=== PATIENT | female | born 1940 | race Caucasian/White ===

== ENCOUNTER 2024-04-10 12:07 | Emergency (ER) | payer OTHER, SELFPAY ==
[2024-04-10 12:16] VITALS: BP 131/86
[2024-04-10 12:47] VITALS: BMI 24.1
[2024-04-10] MEDS: CARDIZEM 10 MG IV (12:50)
[2024-04-10] MEDS: NSS 500 IV (12:52)
--- NOTE | 2024-04-10 12:54 | ED.GENMED ---
History of Present Illness
General
Chief Complaint: Heart Rate Problem
Source: patient and spouse
Exam Limitations: none
Time Seen by Provider: 04/10/24 12:41
Nursing documentation reviewed up to this point in time: agreed with
History of Present Illness
History of Present Illness:
84-year-old female with a past medical history of hypertension, hyperlipidemia who presents to the emergency room for evaluation of dizziness and tachycardia. Patient reports onset of symptoms yesterday morning while she was doing her usual yoga
class. She says that while she was finishing up she began to feel very dizzy and had to rest which is unusual for her. She says that she has had consistent feeling of dizziness since then, she says that she checked her heart rate and it was very
elevated. She says that she schedule an appointment to see her stroboscope operator (she has seen Dr. Greco to follow small pericardial effusion), in the office had an EKG that showed tachycardia and was sent to the ER for assessment. EKG here shows
atrial flutter; patient denies any known history of atrial fibrillation/flutter. Aside from dizziness patient reports mild shortness of breath. She says she has had intermittent symptoms for months but never quite this severe. She denies any
chest pain. She denies any other complaints. Her only medications are valsartan and amlodipine.
Review of Systems
Review of Systems
All Other Systems: ROS reviewed and negative except as documented in HPI and ROS
Constitutional: Reports fatigue; Denies fever or chills
Respiratory: Denies trouble breathing
Cardiac: Reports palpitations; Denies chest pain or diaphoresis
ABD/GI: Denies abdominal pain, nausea or vomiting
: Denies flank pain
Musculoskeletal: Denies edema, neck pain or back pain
Neurological: Reports dizzy; Denies headache
Phy Exam
Physical Exam
Physical Exam:
General: Awake, alert, oriented x3 and quite pleasant; no acute distress
Head: Normocephalic, atraumatic
Eyes: Conjunctiva normal, sclera anicteric
Throat: Airway intact, handling secretions
Neck: Trachea midline, no JVD
Lungs: Clear to auscultation bilaterally, no wheezing, rales, rhonchi
Heart: Tachycardia with ostensibly regular rhythm, no murmurs, gallops, or rubs appreciated
Abd: Soft, non distended, nontender
Neuro: No gross deficits
Skin: no rash
Extremities: No edema in extremities, equal pulses in all extremities
Scores
Heart Failure Risk
Heart Failure Risk Score: Not Applicable
Heart Score for Chest Pain Patients
STEMI patient?: Not applicable
Withdrawal Assessment of Alcohol
Withdrawal Assessment Completed?: Not applicable
Course
Orders/Labs/Results
Orders:
Orders
04/10/24 12:10
Electrocardiogram (*1) Urgent
Reason for Study: Chest Pain
EKG- Treatment ONCE
04/10/24 12:42
Diltiazem HCl [Cardizem] 10 mg IV NOW STA
04/10/24 12:43
0.9% Sodium Chloride 500 ml [Nss] 500 ml IV BOLUS
04/10/24 12:54
PTT Urgent
Prothrombin Time Urgent
04/10/24 12:55
Complete Blood Count/With Diff Urgent
Comprehensive Metabolic Panel Urgent
Magnesium Urgent
TSH Reflex To Free T4 Urgent
04/10/24 12:57
CARDIOLOGY CONSULT Urgent
Consulting Provider: Ramy Lino
Was physician already notified: Yes
04/10/24 13:03
Heparin 4,000 units IV NOW STA
Nursing to Place Non Medication Order As Directed
Physician Order: PTT 6 hours after initial start of Heparin infusion
04/10/24 13:15
Heparin [id number] Units/250 ml 25,000 units in 250 ml IV PER PROTOCOL
Weight to be used for heparin protocol in kilograms (kg):: 69.7
Protocol:: Cardiac Tx/Acute Coronary
PTT Goal Range to be used:: PTT 73 to 111 seconds
Order type:: Initial
INITIAL Infusion Dose (UNITS/KG/hr) & then follow protocol:: 12 units/kg/hr
Infusion Dose in UNITS/hr & then follow protocol (UNITS/hr):: 850
INFUSION RATE in mL/hr & then follow protocol (mL/hr):: 8.5
PTT less than or equal to 64 seconds:: Increase rate by 200 units/hr (+ 2 mL/hr)
PTT 64.1 to 72.9 seconds:: Increase rate by 100 units/hr (+ 1 mL/hr)
PTT 73 to 111 seconds:: Target Range. No change in rate.
PTT 111.1 to 130.9 seconds:: Decrease rate by 100 units/hr (- 1 mL/hr)
PTT 131 to 199.9 seconds:: HOLD for 1 hr. Then decrease rate by 200 units/hr (- 2 mL/hr)
PTT greater than or equal to 200 seconds:: HOLD for 2 hrs & Notify Provider. Then decrease by 200 units/hr (-
2 mL/hr)
Lab follow-up:: Each change, PTT q6h until 2 consecutive are therapeutic. Then PTT
daily.
04/10/24 13:33
Electrocardiogram (*1) Urgent
Reason for Study: Tachycardia
EKG- Treatment ONCE
04/10/24 14:01
Diltiazem Extended Release [Cardizem Cd] 120 mg PO NOW STA
04/10/24 14:02
Apixaban [Eliquis] 5 mg PO NOW STA
Abnormal Lab Results
04/10/24
12:55
MPV 11.3 H fL
(7.4-10.4)
Lymphocytes % 19.2 L %
(20.5-51.1)
BUN 28 H mg/dl
(7-17)
AST 45 H U/L
(14-36)
04/10/24 12:55
04/10/24 12:55
Vital Signs
Initial and Last Documented VS:
Initial Vital Signs
Temp Pulse Resp BP Pulse Ox
37.0 C 70 18 131/86 98
04/10/24 12:16 04/10/24 12:16 04/10/24 12:16 04/10/24 12:16 04/10/24 12:16
Last Documented Vital Signs
Temp Pulse Resp BP Pulse Ox
37.0 C 132 18 131/86 98
04/10/24 12:16 04/10/24 12:49 04/10/24 12:49 04/10/24 12:16 04/10/24 12:49
MDM/Problems Addressed
Differential Diagnosis Includes:
Symptomatic atrial flutter
MDM/Problems Addressed:
84-year-old female with history as documented presents for evaluation of dizziness and shortness of breath�intermittent for months but constant and severe since yesterday morning. Vitals significant for tachycardia. EKG shows 2:1 atrial flutter.
Blood pressure stable. With intermittent symptoms for months and no anticoagulation on board patient would not be a candidate for elective cardioversion out of the ER. Will plan to rate control. Will place an IV send labs including a CBC and a
CMP, thyroid studies. Will provide some IV fluids and diltiazem bolus. Case discussed with cardiology for consultation. Reassess after the above.
After single dose of diltiazem patient now with heart rate of 75 still in atrial flutter. She feels well and is requesting to go home. Her vitals have otherwise been stable, normotensive. Cardiology evaluated at bedside, will start on diltiazem
120 mg daily and discontinue patient's current and discontinue patient's current amlodipine. Can start on Eliquis 5 mg twice daily. Patient feels very comfortable this plan. Spoke about return precautions all questions answered.
*Pulse Oximetry
Patient hypoxic: no
*EKG
Interpreted by ED Provider?: Yes
Heart Rate: 141
Rate: tachycardiac
Rhythm: atrial flutter
[place]: normal axis
Interval: normal interval
QRS Pattern: normal QRS
Ischemia: non-specific ST changes
*Critical Care Note
Total Time (30-74mins, 75-104mins- exclusive of procedures): 33
comment:
Critical care statement: A total of 33 minutes of critical care time was provided for this patient. This includes management of unstable vital signs, evaluation of the patient at bedside, frequent reassessment, discussion with
consultants/hospitalist, and review of pertinent medical records. This time was separate from time utilized to perform any aforementioned documented procedures
Data Reviewed
Source: patient, records and spouse
Patient Management
Discussion with other providers: Supervisor Felting (Discussed with stroboscope operator)
ED Attending Note
-
Portions of this chart may have been created with voice recognition software.� Occasional wrong word or��sound alike� substitutions may have occurred due to the inherent limitations of voice recognition software.
Discharge Plan
Departure
Patient Disposition: Home (Routine Discharge)
Date of Disposition: 04/10/24
Time of Disposition: 14:02
Patient with high blood pressure during this ER visit?: No
Discharge Problem:
Atrial flutter
Instructions: Atrial Fibrillation and Atrial Flutter ED
Prescriptions:
New
Eliquis 5 mg tablet
5 mg PO Q12H Qty: 60 0RF
diltiazem HCl 120 mg capsule,extended release 24hr
120 mg PO DAILY Qty: 30 0RF
Discontinued
amlodipine 5 mg tablet
5 mg PO DAILY
No Action
gabapentin 100 mg capsule
200 mg PO DAILY
multivitamin Tablet
1 tab PO DAILY
calcium carbonate [Calcium 600] 600 mg calcium (1,500 mg) Tablet
600 mg PO DAILY
gabapentin 300 mg capsule
300 mg PO HS
valsartan 160 mg tablet
160 mg PO HS
cyclosporine [Restasis] 0.05 % dropperette
1 drp BOTH EYES BID
Systane Nighttime 94-3 % Ointment
1 applic BOTH EYES HS
cholecalciferol (vitamin D3) [Vitamin D3] 50 mcg (2,000 unit) Tablet
50 mcg PO DAILY
PreserVision AREDS-2 250-90-40-1 mg Capsule
1 cap PO BID
vitamin K2 100 mcg Capsule
100 mcg PO DAILY
Referrals:
Frederick Arana MD [Family Provider] -
Efrain Greco MD [Active] - Call in 1-3 days for appt
Activity Restrictions/Additional Instructions:
Thank you for visiting the Emergency Department at [facility].
1. Please schedule a follow up appointment as directed. Call first thing tomorrow morning to make an appointment.
2. If indicated, please take your medications as instructed and indicated on discharge paperwork.
3. If any of your symptoms do not improve, or persist, or become more severe within 6-12 hours, please return to the emergency department for further care.
4. Please return to the emergency department if you develop a headache, neck pain/stiffness, fever greater than 100.4F, chest pain, shortness of breath, persistent nausea, vomiting, slurred speech, difficulty walking, numbness/tingling, weakness,
signs of infection or any other symptoms that are worrisome to you.
Please call [phone] if you have any questions.
Interventions
Interventions:
*Risk Screen - Suicide Last Done: 04/10/24 12:16
*General Assessment Last Done: 04/10/24 12:16
*Neglect/Abuse Screening Last Done: 04/10/24 12:16
ED- Fall Risk Assessment Last Done: 04/10/24 12:47
*ED COVID-19 Vaccine History Last Done: 04/10/24 12:16
ED- Cardiac Assessment Last Done: 04/10/24 12:47
ED- Pulmonary Assessment Last Done: 04/10/24 12:47
Discharge Date and Time
Print Language: BURUNDIAN
[2024-04-10 13:00] VITALS: BP 128/72
[2024-04-10 13:03] LABS: % Basophils 0.3 % (0-2); % Eosinophils 0.9 % (0-6); % Immature Granulocytes 0.3 % (0-0.5); % Lymphocytes 19.2 % (20.5-51.1); % Monocytes 8.2 % (1.7-9.3); % Neutrophils 71.1 % (42.2-75.2); Absolute Eosinophils 0.1 10^3/uL (0-0.7); Absolute Lymphocytes 1.3 10^3/uL (1.2-3.4); Absolute Monocytes 0.6 10^3/uL (0.1-0.6); Absolute Neutrophils 4.9 10^3/uL (1.4-6.5); Hemoglobin 12.6 g/dL (12.0-16.0); Mean Corp Hgb Conc. 33.2 g/dL (33.0-37.0); Mean Corpuscular Hgb 28.3 pg (27.0-31.0); Mean Corpuscular Volume 85.4 fL (81.0-99.0); Mean Platelet Volume 11.3 fL (7.4-10.4); Nucleated Red Blood Cells % 0 %; Platelet Count 226 10^3/uL (130-400); Red Blood Cell Count 4.45 10^6/uL (4.20-5.40); Red Cell Dist. Width 13.7 % (11.5-14.5); White Blood Cell Count 6.9 10^3/uL (4.8-10.8)
[2024-04-10 13:15] LABS: INR 1.01; PT 13.1 Sec (11.4-14.6)
[2024-04-10 13:16] LABS: APTT 30.6 Sec (23.4-35.0)
[2024-04-10] MEDS: HEPARIN 25000 UNITS/250 ML IV (13:18)
[2024-04-10] MEDS: HEPARIN 4000 UNITS IV (13:18)
[2024-04-10 13:24] LABS: ALT (SGPT) 26 U/L (0-35); AST (SGOT) 45 U/L (14-36); Albumin 4.3 g/dl (3.5-5.0); Alkaline Phosphatase 106 U/L (38-126); Blood Urea Nitrogen 28 mg/dl (7-17); Calcium 9.5 mg/dl (8.4-10.2); Carbon Dioxide 28 mmol/L (22-30); Chloride 99 mmol/L (98-107); Estimated Creatinine Clearance 39 ml/min; Glucose 97 mg/dl (70-99); Magnesium 2.2 mg/dl (1.6-2.3); Potassium 4.4 mmol/L (3.5-5.1); Sodium 138 mmol/L (135-145); Total Bilirubin 0.6 mg/dl (0.2-1.3); Total Protein 6.9 g/dl (6.3-8.2); eGFR 54.87
[2024-04-10 14:00] VITALS: BP 150/74
[2024-04-10] MEDS: CARDIZEM CD 120 MG PO (14:08)
[2024-04-10] MEDS: ELIQUIS 5 MG PO (14:08)
--- NOTE | 2024-04-10 14:29 | W.PN.CD ---
Addendum entered and electronically signed by Ramy Lino MD 04/10/24 14:45:
84 yo female with HTN presents to ED with new atrial flutter with RVR. Responded well to IV diltiazem bolus--rate controlled without symptoms. We discussed inpatient vs outpatient management. She prefers outpatient.
Start eliquis 5mg bid. Change amlodipine to diltiazem 120mg daily.
We will do echo as outpatient, and arrange for follow up.
Based on symptoms, she will decide if she wants to pursue rhythm control as outpatient.
Original Note:
Today's Communication / Plan
-
This is a consultation summary. Please see scanned consultation.
We discussed admission. She politely declined. Start Cardizem CD 120 mg daily. Start apixaban 5 mg twice daily. Stop amlodipine.
If her heart rate is not controlled or she has shortness of breath, dizziness, syncope/presyncope she will present to the emergency department.
We discussed signs and symptoms of abnormal bleeding. She knows when to notify provider.
Impression / Plan
-
BACKGROUND: 84F with hypertension, mitral regurgitation, pericardial effusion (stable on echo 02/2023), and osteoporosis presented to the outpatient cardiology office today with elevated heart rate for 24 hours.
Corporate Security Officer: Dr. Greco
Atrial flutter, type unknown
-She had associated shortness of breath and dizziness with elevated rates
-She does not want to be admitted, stop heparin drip and start apixaban 5 mg twice daily
-Rates improved after intravenous diltiazem, start diltiazem CD 120 mg daily
Hypertension, stop amlodipine to allow for diltiazem
Valvular heart disease
-Mild mitral stenosis
-Mild mitral regurgitation.
-Mild aortic regurgitation.
Small pericardial effusion, seen since 2021
Physical Exam
Vital Signs/Labs
Vital Signs
Temp Pulse Resp BP Pulse Ox
98.6 F 95 13 150/74 97
04/10/24 12:16 04/10/24 14:00 04/10/24 14:00 04/10/24 14:00 04/10/24 14:00
04/09/24 04/10/24 04/11/24
06:59 06:59 06:59
Actual Weight 69.7 kg
04/10/24 12:55
04/10/24 12:55
PT 13.1 Sec (11.4-14.6) 04/10/24 12:54
INR 1.01 04/10/24 12:54
APTT 30.6 Sec (23.4-35.0) 04/10/24 12:54
Magnesium 2.2 mg/dl (1.6-2.3) 04/10/24 12:55
Physical Exam
Constitutional: No acute distress and Comfortable
EENT: Anicteric and Moist mucous membranes
Cardiovascular: Rhythm & rate is regular, S1S2 is normal and Murmur/rub/gallop absent
Respiratory: Respiratory effort normal
GI: Soft, Distention absent, Flat and Non tender
Neuro/Psych: AO x 3
Other: Skin (Warm and dry without edema)
Data Reviewed
-
Date of Service: April 10, 2024
== END 2024-04-10 14:21 | disposition home or self-care (01) ==
LOC: EMR 12:07
PROVIDERS: CONSULT PHYSICIAN Internal Medicine; EMERGENCY PHYSICIAN Emergency Medicine; FAMILY PHYSICIAN Family Medicine
DX: I48.92 Unspecified atrial flutter (principal); I10 Essential (primary) hypertension; E78.5 Hyperlipidemia, unspecified
CPT/HCPCS: 99291; 96374; 96375; 96361; 80053; 83735; 84443; 85025; 85610; 85730; 93005

== ENCOUNTER → 2024-04-24 14:31 | Outpatient (REF) | payer OTHER, SELFPAY | LOC: RCS 14:31 | PROVIDERS: ATTENDING PHYSICIAN Internal Medicine Cardiovascular Disease; FAMILY PHYSICIAN Family Medicine | DX: I48.92 Unspecified atrial flutter (principal) | CPT/HCPCS: 93306 ==

== ENCOUNTER 2024-04-29 12:18 | Emergency (ER) | payer OTHER, SELFPAY ==
[2024-04-29] VITALS (10 sets, daily range): BP systolic 134–174; BP diastolic 67–110; BMI 24.8
--- NOTE | 2024-04-29 13:26 | ED.GENMED ---
History of Present Illness
General
Chief Complaint: Cardiac Symptoms
Time Seen by Provider: 04/29/24 12:45
History of Present Illness
History of Present Illness:
84-year-old female with new diagnosis of atrial fibrillation on diltiazem and Eliquis presenting to the emergency department for elevated heart rate. Patient reports his last evening, has been having palpitations and elevated heart rate. Patient
recently diagnosed with atrial fibrillation on April 10 after she came to the hospital. She was started on Eliquis and diltiazem, has since followed up with cardiology. Denies associated chest pain or difficulty breathing. Denies any lower
extremity swelling. Denies abdominal pain or GI symptoms. Denies fever or recent illness. Denies additional acute medical complaints.
Phy Exam
Physical Exam
Physical Exam:
General: Well-appearing, no clinical signs of dehydration, nontoxic and in no acute distress
HEENT: protecting airway
Neck: appears supple
CV: Irregular irregular rhythm, tachycardia, no evidence of cyanosis
Resp: No accessory muscle use, no increased work of breathing, lungs clear to auscultation bilaterally
Abd: Soft and non-distended, no tenderness to palpation
Extremities: No deformities, no swelling, no erythema
Neuro: alert, no focal neurologic deficit
: deferred
Rectal: deferred
Psych: Normal affect
Skin: Intact
Course
Orders/Labs/Results
Orders:
Orders
04/29/24 12:30
Electrocardiogram (*1) Urgent
Reason for Study: Tachycardia
EKG- Treatment ONCE
04/29/24 13:09
Diltiazem HCl [Cardizem] 15 mg IV NOW STA
04/29/24 13:41
Complete Blood Count/With Diff Urgent
Comprehensive Metabolic Panel Urgent
Magnesium Urgent
04/29/24 13:54
Electrocardiogram (*1) Urgent
Reason for Study: Palpitations
EKG- Treatment ONCE
04/29/24 14:01
Diltiazem Extended Release [Cardizem Cd] 120 mg PO NOW STA
Abnormal Lab Results
04/29/24
13:41
MCHC 32.3 L g/dL
(33.0-37.0)
Lymphocytes % 20.4 L %
(20.5-51.1)
BUN 28 H mg/dl
(7-17)
AST 37 H U/L
(14-36)
04/29/24 13:41
04/29/24 13:41
Vital Signs
Initial and Last Documented VS:
Initial Vital Signs
Temp Pulse Resp BP Pulse Ox
97.7 F 129 18 150/101 97
04/29/24 12:24 04/29/24 12:24 04/29/24 12:24 04/29/24 12:24 04/29/24 12:24
Last Documented Vital Signs
Temp Pulse Resp BP Pulse Ox
97.7 F 130 11 147/101 93
04/29/24 12:24 04/29/24 13:48 04/29/24 13:45 04/29/24 13:48 04/29/24 13:50
MDM/Problems Addressed
MDM/Problems Addressed:
84-year-old female with recent diagnosis of atrial fibrillation presenting to the emergency department for palpitations. Vital signs on arrival significant for tachycardia.
On exam, patient is well-appearing, no acute distress, however is tachycardic to the 130s. EKG confirms a flutter, consistent with prior EKG from April 10 visit to the ER. Patient notes compliance with her diltiazem and Eliquis. She otherwise
denies chest pain, no ischemic abnormality on EKG with lower suspicion for ACS. Will screen with laboratory analysis by IV diltiazem for rate control and discussed with cardiology
14:10 -patient's heart rate has improved after diltiazem. In discussion with cardiology, recommending increasing patient's diltiazem to 240 daily.
14:35 - Patient's heart rate continues to be improved and patient remains hemodynamically stable. At this time feel stable for discharge with close interval follow-up with a grain elevator operator. Prescription provided for to 40 mg of diltiazem daily.
Return precautions discussed to patient and at bedside who verbalized understanding.
*EKG
Interpreted by ED Provider?: Yes
EKG Intrepretation Date: 04/29/24
EKG Intrepretation Time: 13:28
Interpretation: abnormal
Comparison EKG: no changes (04/10/24)
Heart Rate: 129
Rate: tachycardiac
Rhythm: atrial flutter
[place]: normal axis
QRS Pattern: normal QRS
Ischemia: no ischemia
*Critical Care Note
Total Time (30-74mins, 75-104mins- exclusive of procedures): Not Applicable
ED Attending Note
-
Portions of this chart may have been created with voice recognition software.� Occasional wrong word or��sound alike� substitutions may have occurred due to the inherent limitations of voice recognition software.
Discharge Plan
Departure
Patient with high blood pressure during this ER visit?: No
Condition: Good
Discharge Problem:
Atrial flutter
Prescriptions:
No Action
gabapentin 100 mg capsule
200 mg PO DAILY
multivitamin Tablet
1 tab PO DAILY
calcium carbonate [Calcium 600] 600 mg calcium (1,500 mg) Tablet
600 mg PO DAILY
gabapentin 300 mg capsule
300 mg PO HS
valsartan 160 mg tablet
160 mg PO HS
cyclosporine [Restasis] 0.05 % dropperette
1 drp BOTH EYES BID
Systane Nighttime 94-3 % Ointment
1 applic BOTH EYES HS
cholecalciferol (vitamin D3) [Vitamin D3] 50 mcg (2,000 unit) Tablet
50 mcg PO DAILY
PreserVision AREDS-2 250-90-40-1 mg Capsule
1 cap PO BID
vitamin K2 100 mcg Capsule
100 mcg PO DAILY
Eliquis 5 mg tablet
5 mg PO Q12H Qty: 60 0RF
diltiazem HCl 120 mg capsule,extended release 24hr
120 mg PO DAILY Qty: 30 0RF
Referrals:
Frederick Arana MD [Family Provider] -
Activity Restrictions/Additional Instructions:
You were seen in the emergency department for elevated heart rate
You were found to have atrial flutter. Your heart rate improved with IV diltiazem. In discussion with cardiology, it is recommended that you increase your dose from 120 mg daily to 240 mg daily. A prescription has been sent to your pharmacy.
Please follow-up closely with your
Please follow-up closely with your primary care physician.
Return to the emergency department for any worsening of your symptoms including persistently elevated heart rate, or any development of chest pain, difficulty breathing, abdominal pain with persistent vomiting and inability to tolerate food or
liquid by mouth (concern for dehydration), weakness or feeling like you are going to pass out, headache or confusion, fever greater than 100.4, or any additional symptoms that are concerning to you.
Thank you for choosing [facility].
Interventions
Interventions:
*Risk Screen - Suicide Last Done: 04/29/24 12:24
*General Assessment Last Done: 04/29/24 12:24
*Neglect/Abuse Screening Last Done: 04/29/24 12:24
ED- Fall Risk Assessment Last Done: 04/29/24 13:50
*ED COVID-19 Vaccine History Last Done: 04/29/24 13:50
ED- Pulmonary Assessment Last Done: 04/29/24 13:50
ED- Cardiac Assessment Last Done: 04/29/24 13:50
Discharge Date and Time
Print Language: IRISH
--- NOTE | 2024-04-29 13:40 | EDRN ---
this RN entered the pts room to introduce this RN to the pt and the pts , and before this RN could speak the pts stated to this RN, 'What is your name?', this RN told the pt and the pts what this RN's name was and the pts
stated, 'Can you repeat that and can you spell that please', this RN spelled this RN's name for the pts , the pts then stated to this RN, 'Did that offend you or something? I am allowed to ask what your name is', this RN responded and
stated that this RN was not offended and that the patients has every right to ask this RN's name however this RN notified the pts that he did not allow this RN to speak when this RN walked into the pts room, the pts then
stated, (this is all while this RN is hooking the pt up to the cardiac rn, bp cuff, and Sp02 monitor), 'Okay well i am going to need a copy of her lab work and a copy of her EKG, i asked the doctor and she said that i could have copies of
those, and also what number is the heart rate, is that the number that's blinking that is 129-131?', this RN notified the pts that he could have copies of everything performed today and this RN educated the pts on which number was
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
doing', this RN then started speaking to the pt about placing a PIV and drawing labs and administering cardizem, the pt was agreeable and understood this RN's teaching, PIV was placed, labs were collected and sent, the pt is resting in stretcher in
the lowest position, side rails up x2, call lindo within reach, HOB elevated, no s/s of distress, no c/o chest pain, no c/o SOB, the pt has c/o 'slight palpitations'
[2024-04-29] MEDS: CARDIZEM 15 MG IV (13:48)
--- NOTE | 2024-04-29 13:51 | EDRN ---
Cardizem bolus was administered with the pts HR in the 130's, the pts HR came down to 79bpm, Dr. Almaraz notified
[2024-04-29 14:05] LABS: % Basophils 0.4 % (0-2); % Eosinophils 0.9 % (0-6); % Immature Granulocytes 0.4 % (0-0.5); % Lymphocytes 20.4 % (20.5-51.1); % Monocytes 8.7 % (1.7-9.3); % Neutrophils 69.2 % (42.2-75.2); Absolute Eosinophils 0.1 10^3/uL (0-0.7); Absolute Lymphocytes 1.4 10^3/uL (1.2-3.4); Absolute Monocytes 0.6 10^3/uL (0.1-0.6); Absolute Neutrophils 4.9 10^3/uL (1.4-6.5); Hematocrit 38.1 % (37.0-47.0); Hemoglobin 12.3 g/dL (12.0-16.0); Mean Corp Hgb Conc. 32.3 g/dL (33.0-37.0); Mean Corpuscular Hgb 28.6 pg (27.0-31.0); Mean Corpuscular Volume 88.6 fL (81.0-99.0); Mean Platelet Volume 10.4 fL (7.4-10.4); Nucleated Red Blood Cells % 0 %; Platelet Count 234 10^3/uL (130-400); White Blood Cell Count 7.1 10^3/uL (4.8-10.8)
[2024-04-29 14:15] LABS: ALT (SGPT) 21 U/L (0-35); AST (SGOT) 37 U/L (14-36); Albumin 3.9 g/dl (3.5-5.0); Alkaline Phosphatase 107 U/L (38-126); Blood Urea Nitrogen 28 mg/dl (7-17); Calcium 9.1 mg/dl (8.4-10.2); Carbon Dioxide 29 mmol/L (22-30); Chloride 102 mmol/L (98-107); Estimated Creatinine Clearance 42 ml/min; Glucose 97 mg/dl (70-99); Magnesium 2.1 mg/dl (1.6-2.3); Potassium 4.4 mmol/L (3.5-5.1); Sodium 140 mmol/L (135-145); Total Bilirubin 0.4 mg/dl (0.2-1.3); Total Protein 6.5 g/dl (6.3-8.2); eGFR > 60.00
[2024-04-29] MEDS: CARDIZEM CD 120 MG PO (14:53)
--- NOTE | 2024-04-29 15:03 | EDRN ---
this RN entered the pts room and educated the pt and the pts that this RN was going to administer Cardizem PO, the pt stated that they first needed to use the bathroom, this RN allowed the pt to use the bathroom, the pt ambulated to the
bathroom and back to the stretcher with no issues, once the pt sat down and got comfortable the pts HR went from 80bpm to the 130's, this RN notified Dr. Almaraz and per the provider the PO Cardizem was still administered, per Dr. Almaraz the pt is to
ambulate with the RN to see if the pts HR becomes tachy again
--- NOTE | 2024-04-29 15:07 | EDRN ---
the pt was ambulated with this RN and the pts HR remained in the 90's, this RN notified Dr. Almaraz
--- NOTE | 2024-04-29 15:19 | EDRN ---
the pts blood pressure has come down 159/92 (113), this RN removed the pts RAC #20 PIV and placed a pressure dressing, the site is [facility], this RN provided copies of all of the pts lab work for the pt and copies of both EKG's that were performed and
this RN provided the medication names and dosages and times that were administered to the pt for the per his request, this RN and Dr. Almaraz were at the pts bedside and provided discharge instructions for the pt and the pts and they
verbally stated that they understood, the pt was able to get herself dressed
== END 2024-04-29 15:22 | disposition home or self-care (01) ==
LOC: EMR 12:18
PROVIDERS: EMERGENCY PHYSICIAN Student in an Organized Health Care Education/Training Program; FAMILY PHYSICIAN Family Medicine
DX: I48.92 Unspecified atrial flutter (principal); I48.91 Unspecified atrial fibrillation; Z79.01 Long term (current) use of anticoagulants; Z79.899 Other long term (current) drug therapy
CPT/HCPCS: 96374; 99284; 80053; 83735; 85025; 93005

== ENCOUNTER → 2024-10-03 09:54 | Outpatient (REF) | payer OTHER, SELFPAY | LOC: RAD 09:54 | PROVIDERS: ATTENDING PHYSICIAN Family Medicine | DX: M81.0 Age-related osteoporosis without current pathological fracture (principal); I10 Essential (primary) hypertension | CPT/HCPCS: 77080 ==

== ENCOUNTER 2025-02-01 17:40 | Emergency (ER) | payer OTHER, SELFPAY ==
[2025-02-01] VITALS (10 sets, daily range): BP systolic 178–215; BP diastolic 88–123; BMI 23.8
[2025-02-01 18:13] LABS: Hematocrit 37.7 % (37.0-47.0); Hemoglobin 12.6 g/dL (12.0-16.0); Mean Corp Hgb Conc. 33.4 g/dL (33.0-37.0); Mean Corpuscular Volume 85.7 fL (81.0-99.0); Nucleated Red Blood Cells % 0 %; Platelet Count 201 10^3/uL (130-400); Red Cell Dist. Width 13.7 % (11.5-14.5)
[2025-02-01 18:23] LABS: ALT (SGPT) 23 U/L (0-35); AST (SGOT) 41 U/L (14-36); Albumin 4.5 g/dl (3.5-5.0); Alkaline Phosphatase 79 U/L (38-126); Blood Urea Nitrogen 34 mg/dl (7-17); Calcium 10.0 mg/dl (8.4-10.2); Carbon Dioxide 30 mmol/L (22-30); Chloride 103 mmol/L (98-107); Glucose 137 mg/dl (70-99); Potassium 4.3 mmol/L (3.5-5.1); Sodium 138 mmol/L (135-145); Total Protein 7.3 g/dl (6.3-8.2); eGFR 48.94
--- NOTE | 2025-02-01 20:33 | ED.GENMED ---
History of Present Illness
General
Chief Complaint: Blood Pressure Problem
Source: patient
Exam Limitations: none
Time Seen by Provider: 02/01/25 20:02
Nursing documentation reviewed up to this point in time: agreed with
History of Present Illness
History of Present Illness:
Patient is a 4-year-old female with history of hypertension hyperlipidemia A-fib on Eliquis presents to the ER for evaluation. Patient reports she never takes her blood pressure but randomly took her blood pressure prior to coming to the ER this
afternoon and it was in the 170s over 100s. She denies any symptoms. She denies any headache chest pain dizziness shortness of breath. She takes valsartan 160 mg every evening of 8 PM and did not take that yesterday.
Patient provided a list of her medications which include gabapentin 500 mg diltiazem 240 mg and Eliquis 5 mg every morning. In the evening at 8 PM she takes valsartan 160 mg and Eliquis 5 mg and 9 PM takes gabapentin 300 mg
Phy Exam
General Physical Exam
General Presentation: no apparent distress
General age: appears stated age
General Skin: warm and dry
General Habitus: normal
General Mental: alert
General Hydration: appears well hydrated
Cardiovascular Exam
Cardiovascular Exam: regular rate/rhythm, no murmur and normal peripheral pulses
Pulmonary Exam
Pulmonary Exam: lungs clear and no respiratory distress
Neurological Exam
Neurological Exam: alert and oriented x3
Musculoskeletal Exam
Musculoskeletal Exam: full ROM
Skin Exam
Skin Exam: normal color and warm/dry
Psychiatric Exam
Psychiatric Exam: normal mood/affect
Course
Orders/Labs/Results
Orders:
Orders
02/01/25 17:53
Electrocardiogram (*1) Urgent
Reason for Study: Other
Other Reason for Exam: HTN
02/01/25 17:54
EKG- Treatment ONCE
02/01/25 17:59
Complete Blood Count/With Diff Urgent
Comprehensive Metabolic Panel Urgent
02/01/25 20:48
Valsartan [Diovan] 160 mg PO NOW STA
02/01/25 22:03
Valsartan [Diovan] 160 mg PO NOW STA
Abnormal Lab Results
02/01/25
17:59
Absolute Lymphs (auto) 1.0 L 10^3/uL
(1.2-3.4)
Lymphocytes % 15.6 L %
(20.5-51.1)
BUN 34 H mg/dl
(7-17)
Creatinine 1.1 H mg/dL
(0.6-1.0)
Glucose 137 H mg/dl
(70-99)
AST 41 H U/L
(14-36)
02/01/25 17:59
02/01/25 17:59
Vital Signs
Initial and Last Documented VS:
Initial Vital Signs
Temp Pulse Resp BP Pulse Ox
98.1 F 98 16 193/123 98
02/01/25 17:47 02/01/25 17:47 02/01/25 17:47 02/01/25 17:47 02/01/25 17:47
Last Documented Vital Signs
Temp Pulse Resp BP Pulse Ox
98.1 F 98 17 215/91 96
02/01/25 17:47 02/01/25 22:21 02/01/25 22:21 02/01/25 22:13 02/01/25 22:26
Action Installer consulted with Physician
Action Installer consulted with physician?: Yes (Bernard )
MDM/Problems Addressed
Differential Diagnosis Includes:
Not limited to hypertension
MDM/Problems Addressed:
Patient is an 84-year female who presented with hypertension. She took her blood pressure at home it was elevated. She normally does not check her blood pressure. She denies any headache nausea vomiting fever chills chest pain. She had no
headache. She has poor vision chronically this is not new.
She is prescribed valsartan 160 mg daily. She did not take his evening dose of is given a dose here in the ER. She presented very anxious about her blood pressure however she had no other symptoms.
Labs reviewed patient with normal renal function no acute EKG abnormality.
Case reviewed with ED physician will increase valsartan to max dose of 320 mg with normal renal function. She was given an additional 160 mg here in the ER.
She was monitored here and remained asymptomatic in no acute distress
prior to discharge taken by myself
Will DC with outpatient follow-up with PCP. 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 Greco February 17
Chronic conditions affecting care:
htn
*Pulse Oximetry
SaO2: 96
Oxygen Mode of Delivery: Room air
Patient hypoxic: no
*EKG
Heart Rate: 84
Rate: normal
Rhythm: sinus
Ischemia: no ischemia
*Critical Care Note
Total Time (30-74mins, 75-104mins- exclusive of procedures): Not Applicable
ED Attending Note
-
Portions of this chart may have been created with voice recognition software.� Occasional wrong word or��sound alike� substitutions may have occurred due to the inherent limitations of voice recognition software.
Discharge Plan
Departure
Patient Disposition: Home (Routine Discharge)
Date of Disposition: 02/01/25
Time of Disposition: 23:09
Patient with high blood pressure during this ER visit?: Yes
Condition: Fair
Covid-19: Not Applicable
Discharge Problem:
Elevated blood pressure reading
Instructions: High Blood Pressure (DC), BLOOD PRESSURE
Prescriptions:
New
valsartan 320 mg tablet
320 mg PO DAILY Qty: 30 0RF
No Action
gabapentin 100 mg capsule
200 mg PO DAILY
multivitamin Tablet
1 tab PO DAILY
calcium carbonate [Calcium 600] 600 mg calcium (1,500 mg) Tablet
600 mg PO DAILY
gabapentin 300 mg capsule
300 mg PO HS
valsartan 160 mg tablet
160 mg PO HS
Systane Nighttime 94-3 % Ointment
1 applic BOTH EYES HS
cholecalciferol (vitamin D3) [Vitamin D3] 50 mcg (2,000 unit) Tablet
50 mcg PO DAILY
PreserVision AREDS-2 250-90-40-1 mg Capsule
1 cap PO BID
vitamin K2 100 mcg Capsule
100 mcg PO DAILY
Eliquis 5 mg tablet
5 mg PO Q12H Qty: 60 0RF
diltiazem HCl 240 mg capsule,extended release 24hr
240 mg PO DAILY Qty: 30 0RF
famotidine [Pepcid] 20 mg Tablet
20 mg PO HS PRN (Reason: reflux)
Gemtesa 75 mg Tablet
75 mg PO DAILY
Referrals:
UNKNOWN - PT DOES,NOT KNOW [Unknown Provider]
Activity Restrictions/Additional Instructions:
As discussed a new prescription was sent to your pharmacy for valsartan 320 mg take daily. Be sure to avoid sodium. Follow-up close with your family doctor this week and with your greens or grounds superintendent as scheduled. Return for worsening of symptoms
including chest pain shortness of breath vision changes or headache.
Interventions
Interventions:
*Risk Screen - Suicide Last Done: 02/01/25 19:50
*General Assessment Last Done: 02/01/25 19:50
*Neglect/Abuse Screening Last Done: 02/01/25 19:50
*ED- Fall Risk Assessment Last Done: 02/01/25 19:50
*ED COVID-19 Vaccine History Last Done: 02/01/25 19:55
ED- Cardiac Assessment Last Done: 02/01/25 19:56
ED- Neurological Assessment Last Done: 02/01/25 19:56
ED- Pulmonary Assessment Last Done: 02/01/25 20:02
Discharge Date and Time
Print Language: SWEDISH
[2025-02-01] MEDS: DIOVAN 160 MG PO ×2 (21:00→22:13)
== END 2025-02-01 23:25 | disposition home or self-care (01) ==
LOC: EMR 17:40
PROVIDERS: Emergency Medicine; EMERGENCY PHYSICIAN Emergency Medicine; FAMILY PHYSICIAN Family Medicine
DX: I10 Essential (primary) hypertension (principal); E78.5 Hyperlipidemia, unspecified; I48.91 Unspecified atrial fibrillation; Z79.01 Long term (current) use of anticoagulants; Z79.899 Other long term (current) drug therapy
CPT/HCPCS: 99284; 80053; 85025; 93005